=== PATIENT | male | born 1975 | race Hispanic/Latino ===

== ENCOUNTER 2016-10-27 02:34 | Emergency (ER) | payer OTHER ==
[~2016-10-27] VITALS: Ht 170.2 cm; Wt 95.3 kg
[~2016-10-27 02:34] MED LIST: CLONIDINE HCL0.1 MG PO; CYCLOBENZAPRINE10 M1 PO; FLOMAX0.4 M1 PO; NAPROSYN500 M1 PO; ULTRAM50 M1 PO; VICODIN 5-3001 EACH PO; ZOFRAN4 M2 PO
[2016-10-27 02:49] VITALS: BP 164/100
--- NOTE | 2016-10-27 03:05 | ED GI/GU/ABDOMINAL COMPLAINT ---
History of Present Illness General Chief Complaint: Nausea, Vomiting, Diarrhea Stated Complaint: +N/V, DIZZY Source: patient Exam Limitations: no limitations Vital Signs & Intake/Output Vital Signs & Intake/Output Vital Signs Date Time Temp Pulse Resp B/P Pulse O2 O2 Flow FiO2 Ox Delivery Rate 10/27 0249 97.2 85 18 164/100 92 Room Air Allergies Coded Allergies: No Known Allergies (07/17/16) Reconcile Medications Clonidine HCl 0.1 MG TABLET 1 TAB PO TID DETOXIFICATION Naproxen (Naprosyn) 500 MG TABLET 1 TAB PO BID pain Ondansetron (Zofran Odt) 4 MG TAB.RAPDIS 1-2 TAB SL TID PRN nausea Ondansetron HCl (Zofran) 4 MG TABLET 1 TAB PO Q6-8P PRN NAUSEA Tamsulosin HCl (Flomax) 0.4 MG CAP.ER.24H 1 CAP PO DAILY kidney stone Tramadol HCl (Ultram) 50 MG TABLET 1 TAB PO Q6P PRN pain Triage Note: per pt vomitting x 5 all day today ?diarrhea. kids were sick last week and now me. appears well hydrated. Triage Nurses Notes Reviewed? yes Onset: Gradual Duration: day(s):, waxing and waning Timing: single episode today Quality/Severity: cramping Location: generalized abdomen Radiation: no radiation Activities at Onset: none Prior Abdominal Problems: none Modifying Factors: Worsens With: vomiting. Associated Symptoms: abdominal pain, diarrhea, nausea/vomiting HPI: 41 yo gentleman presents with nausea, vomiting, diarrhea between 11pm -1am. "I just kept vomiting tonight... I was sick earlier in the day. My whole family is sick with the same thing... We were here yesterday in the emergency room. He notes feeling slight nausea. No chest pain, shortness of breath, fever, chills, dysuria. Past History Travel History Traveled to [place] past 21 day No Medical History Any Pertinent Medical History? 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 No Review of Systems Review of Systems Constitutional: Reports: no symptoms. EENTM: Reports: no symptoms. Respiratory: Reports: no symptoms. Cardiovascular: Reports: no symptoms. GI: Reports: no symptoms. Genitourinary: Reports: no symptoms. Musculoskeletal: Reports: no symptoms. Skin: Reports: no symptoms. Neurological/Psychological: Reports: no symptoms. Hematologic/Endocrine: Reports: no symptoms. Immunologic/Allergic: Reports: no symptoms. All Other Systems: Reviewed and Negative Physical Exam Physical Exam General Appearance: well developed/nourished, mild distress Head: atraumatic, normal appearance Eyes: Bilateral: normal appearance. Ears, Nose, Throat, Mouth: hearing grossly normal Neck: normal inspection, supple, full range of motion, normal alignment Respiratory: normal breath sounds, chest non-tender, no respiratory distress, quiet respiration, lungs clear Cardiovascular: regular rate/rhythm Gastrointestinal: normal bowel sounds, soft, non-tender, no organomegaly Back: normal inspection, normal range of motion Extremities: normal range of motion Neurologic/Psych: no motor/sensory deficits, awake, alert, oriented x 3 Skin: intact, normal color, warm/dry Core Measures ACS in differential dx? No Severe Sepsis Present: No Septic Shock Present: No Progress Differential Diagnosis: viral syndrome vs other. Plan of Care: Orders Procedure Date/time Status LIPASE 10/27 236 Complete HEPATIC FUNCTION PANEL 10/27 236 Complete CBC WITHOUT DIFFERENTIAL 10/27 236 Complete BASIC METABOLIC PANEL 10/27 236 Complete AMYLASE 10/27 236 Complete Current Medications Sig/Carmine Start time Last Medication Dose Stop Time Status Admin Ondansetron HCl 4 MG ONCE ONE 10/27 314 CAN (Zofran) 10/27 315 Sodium Chloride 1,000 ML BOLUS ONE 10/27 0315 CAN (Normal Saline 0.9%) 10/27 0414 Laboratory Tests 10/27/16 0305: Anion Gap 8, Estimated GFR > 60, BUN/Creatinine Ratio 22.2, Glucose 91, Calcium 9.2, Total Bilirubin 0.5, Direct Bilirubin 0.4, AST 21, ALT 31, Alkaline Phosphatase 63, Total Protein 7.3, Albumin 4.1, Amylase 48, Lipase 71, CBC w Diff NO MAN DIFF REQ, RBC 5.26, MCV 82.7, MCH 27.4, RDW 13.6, MPV 9.4, Gran % 58.4, Lymphocytes % 30.3, Monocytes % 8.5, Eosinophils % 2.3, Basophils % 0.5, Absolute Granulocytes 5.3, Absolute Lymphocytes 2.7, Absolute Monocytes 0.8 H, Absolute Eosinophils 0.2, Absolute Basophils 0, PUBS MCHC 33.1 Initial ED EKG: none Departure Departure Disposition: HOME OR SELF CARE Condition: Stable Clinical Impression Primary Impression: Nausea and vomiting Secondary Impressions: Abdominal pain, Gastroenteritis Referrals: PATIENT HAS NO PRIMARY CARE DR (PCP/Family) Referred to [facility] as new patient No Departure Forms: Customer Survey General Discharge Information Prescriptions: Current Visit Scripts Ondansetron (Zofran Odt) 1-2 TAB SL TID PRN nausea #10 TAB Ref 1 Comments at discharge, he is feeling better with supportive medications. Labs benign... pt safe for discharge with close follow up advised.
[2016-10-27] MEDS ORDERED: ZOFRAN ODT4 M1 SL (03:17)
[2016-10-27 03:23] LABS: ABSOLUTE BASOPHIL COUNT 0 /CUMM (0.0-0.2); ABSOLUTE EOSINOPHIL COUNT 0.2 /CUMM (0.0-0.7); ABSOLUTE GRANULOCYTE CT 5.3 /CUMM (1.4-6.5); ABSOLUTE LYMPH COUNT 2.7 /CUMM (1.2-3.4); ABSOLUTE MONOCYTE COUNT 0.8 /CUMM (0.10-0.60); BASOPHIL % 0.5 % (0.0-2.0); EOSINOPHIL % 2.3 % (0-5); GRANULOCYTE % 58.4 % (42.2-75.2); HEMATOCRIT 43.5 % (42-52); MEAN CORPUSCULAR HGB 27.4 PG (27.0-31.0); MEAN CORPUSCULAR HGB CONC 33.1 G/DL (33.0-37.0); MEAN CORPUSCULAR VOLUME 82.7 FL (80.0-94.0); MEAN PLATELET VOLUME 9.4 FL (7.4-10.4); PLATELET COUNT 239 /CUMM (130-400); RBC DISTRIBUTION WIDTH 13.6 % (11.5-14.5); RED BLOOD CELL CT 5.26 /CUMM (4.70-6.10); WHITE BLOOD CELL COUNT 9.1 /CUMM (4.8-10.8)
== END 2016-10-27 04:26 ==
LOC: ERH 02:34
PROVIDERS: Pediatrics
DX: K52.9 Noninfective gastroenteritis and colitis, unspecified (principal); R42 Dizziness and giddiness
CPT/HCPCS: J3101

== ENCOUNTER 2016-11-06 19:13 | Emergency (ER) | payer OTHER ==
[~2016-11-06] VITALS: Ht 170.2 cm; Wt 90.7 kg
[~2016-11-06 19:13] MED LIST changes: +ZOFRAN ODT4 M1 SL
[2016-11-06 19:22] VITALS: BP 125/77
--- NOTE | 2016-11-06 19:30 | ED GENERAL ADULT ---
History of Present Illness General Chief Complaint: ETOH/Drug Related Complaint Stated Complaint: HERION WITHDRAWAL Source: patient, TRIAGE NOTES Exam Limitations: PATIENT REFUSED TO SPEAK TO ME Vital Signs & Intake/Output Vital Signs & Intake/Output Vital Signs Date Time Temp Pulse Resp B/P Pulse O2 O2 Flow FiO2 Ox Delivery Rate 11/06 1921 97.3 102 16 125/77 95 Allergies Coded Allergies: No Known Allergies (07/17/16) Reconcile Medications Clonidine HCl 0.1 MG TABLET 1 TAB PO TID DETOXIFICATION Naproxen (Naprosyn) 500 MG TABLET 1 TAB PO BID pain Ondansetron (Zofran Odt) 4 MG TAB.RAPDIS 1-2 TAB SL TID PRN nausea Ondansetron HCl (Zofran) 4 MG TABLET 1 TAB PO Q6-8P PRN NAUSEA Tamsulosin HCl (Flomax) 0.4 MG CAP.ER.24H 1 CAP PO DAILY kidney stone Tramadol HCl (Ultram) 50 MG TABLET 1 TAB PO Q6P PRN pain Triage Note: PT STATES HE IS USING HEROIN AND NOW HE IS WITHDRAWING. PT REQUESTING DETOX AT THIS TIME. PT LAST DETOX WAS 2 MONTHS AGO. PT DENIES OTHER DRUG USE. PT DENIES SI/HI LAST USED LAST EVENING. Triage Nurses Notes Reviewed? yes HPI: Per the triage nurse note, the patient presented to the emergency department requesting treatment for heroin withdrawal. Patient denied any suicidal or homicidal ideations to the triage nurse. Is brought back to ER room 13 and was asked to change into a gown per ER protocol. Security was also there in order to wand him, again according to ER protocol. Patient stated that he is not a criminal and we cannot treat him like one and he walked out of the emergency department prior to being seen or examined by myself. Past History Travel History Traveled to [place] past 21 day No Medical History Any Pertinent Medical History? 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 No Review of Systems Review of Systems Constitutional: Reports: see HPI. Physical Exam Physical Exam General Appearance: alert, awake Comments: I only visualizes patient as he was walking out. Patient refused to speak to me. Per the triage nurse he was alert and oriented and denied suicidal or homicidal ideations. Core Measures ACS in differential dx? No CVA/TIA Diagnosis: No Severe Sepsis Present: No Septic Shock Present: No Progress Differential Diagnoses I considered the following diagnoses in my evaluation of the patient: [Opiate withdrawal] Plan of Care: Patient walked out Initial ED EKG: none Departure Departure Disposition: ER WALKOUT Condition: Stable Clinical Impression Primary Impression: Opiate abuse, continuous Referrals: PATIENT HAS NO PRIMARY CARE DR (PCP/Family) Departure Forms: Customer Survey General Discharge Information Critical Care Note Critical Care Note Critical Care Time: non-applicable
== END 2016-11-06 20:30 | disposition admitted as inpatient to this hospital (09) ==
LOC: ERH 19:13
DX: F11.23 Opioid dependence with withdrawal (principal)

== ENCOUNTER 2017-01-26 23:03 | Emergency (ER) | payer OTHER ==
[~2017-01-26] VITALS: Ht 170.2 cm; Wt 90.7 kg
--- NOTE | 2017-01-26 23:23 | ED UPPER/LOWER EXTREMITY COMPL ---
History of Present Illness General Chief Complaint: Foot or Ankle Injury Stated Complaint: " ?RT FOOT INJURY" Source: patient Exam Limitations: no limitations Vital Signs & Intake/Output Vital Signs & Intake/Output Vital Signs Date Time Temp Pulse Resp B/P Pulse O2 O2 Flow FiO2 Ox Delivery Rate 01/26 2316 98.7 98 18 149/91 96 Room Air ED Intake and Output 04 0000 04 1200 Intake Total Output Total Balance Patient 200 lb Weight Allergies Coded Allergies: No Known Allergies (07/17/16) Reconcile Medications Clonidine HCl 0.1 MG TABLET 1 TAB PO TID DETOXIFICATION Naproxen (Naprosyn) 500 MG TABLET 1 TAB PO BID pain Ondansetron (Zofran Odt) 4 MG TAB.RAPDIS 1-2 TAB SL TID PRN nausea Ondansetron HCl (Zofran) 4 MG TABLET 1 TAB PO Q6-8P PRN NAUSEA Tamsulosin HCl (Flomax) 0.4 MG CAP.ER.24H 1 CAP PO DAILY kidney stone Tramadol HCl (Ultram) 50 MG TABLET 1 TAB PO Q6P PRN pain Triage Nurses Notes Reviewed? yes Onset: Abrupt Duration: hour(s):, waxing and waning Timing: recent history Severity: mild Pain/Injury Location: Right: Ankle. Method of Injury: fall Modifying Factors: Improves With: rest. Worsens With: movement. Associated Symptoms: right ankle sprain HPI: 41 yo gentleman presents with right ankle pain. "I think I sprained my achilles tendon... I tripped when I was coming down some stairs." He notes no focal bony pain, no deformity. He is able to ambulate but with discomfort. Past History Travel History Traveled to [place] past 21 day No Medical History Any Pertinent Medical History? 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 No Review of Systems Review of Systems Constitutional: Reports: no symptoms. EENTM: Reports: no symptoms. Respiratory: Reports: no symptoms. Cardiovascular: Reports: no symptoms. Gastrointestinal/Abdominal: Reports: no symptoms. Genitourinary: Reports: no symptoms. Musculoskeletal: Reports: no symptoms. Skin: Reports: no symptoms. Neurological/Psychological: Reports: no symptoms. Hematologic/Endocrine: Reports: no symptoms. Immunological: Reports: no symptoms. All Other Systems: Reviewed and Negative Physical Exam Physical Exam General Appearance: well developed/nourished, mild distress Head: atraumatic Eyes: Bilateral: normal appearance. Ears, Nose, Throat: normal pharynx, normal ENT inspection, hearing grossly normal Neck: normal inspection, supple Cardiovascular/Respiratory: regular rate/rhythm Back: normal inspection Foot Right: pain with extension of his right foot, mild tenderness to achilles tendon. strength of ankle is normal. no deformity. 2+ distal pulses and light touch intact. Skin: intact, normal color, warm/dry Lymphatic: no anterior cervical amrik Progress Differential Diagnosis: contusion, fracture, sprain Plan of Care: Orders Procedure Date/time Status Durable Medical Equipment 01/28 32 Active Diagnostic Imaging: Viewed by Me: Radiology Read. Discussed w/RAD: Radiology Read. Radiology Impression: right ankle... no fx. Comments: PATIENT: MARTHA RYAN PRESENT AGE: 41 PATIENT ACCOUNT NO: [id number] : 75 LOCATION: [facility] ORDERING PHYSICIAN: LEONEL LOZA MD SERVICE DATE: 01/26/17 EXAM TYPE: RAD - XRY-TWO VIEW RIGHT ANKLE EXAMINATION: XR ANKLE, RIGHT CLINICAL INFORMATION: Right ankle injury. Pain. COMPARISON: None TECHNIQUE: AP, lateral, and mortise views of the right ankle. FINDINGS: The bones and soft tissues are normal. No fracture. Alignment is anatomic. Joint spaces are maintained. No joint effusion. IMPRESSION: Normal right ankle. DICTATED BY: ELOISA CONWAY MD DATE/TIME DICTATED:01/27/177 MANUFACTURING OPERATOR:JULIOCESAR DATE/TIME TRANSCRIBED:01/27/177 CONFIDENTIAL, DO NOT COPY WITHOUT APPROPRIATE AUTHORIZATION. <Electronically signed in Other Vendor System> SIGNED BY: ELOISA CONWAY MD 01/27/17 0013 Departure Departure Disposition: HOME OR SELF CARE Condition: Stable Clinical Impression Primary Impression: Achilles tendon sprain Referrals: MALCOLM ABBOTT,MARIO Bartlett (PCP/Family) Departure Forms: Customer Survey General Discharge Information Comments NEHA BANDAGE placed on right ankle by RN... crutches given... pt referred to ortho if not better. encouraged close follow up.
--- NOTE | 2017-01-27 00:13 | RADIOLOGY REPORT ---
EXAMINATION: XR ANKLE, RIGHT CLINICAL INFORMATION: Right ankle injury. Pain. COMPARISON: None TECHNIQUE: AP, lateral, and mortise views of the right ankle. FINDINGS: The bones and soft tissues are normal. No fracture. Alignment is anatomic. Joint spaces are maintained. No joint effusion. IMPRESSION: Normal right ankle.
[2017-01-27 00:54] VITALS: BP 149/88
== END 2017-01-27 00:55 ==
LOC: ERH 23:03
DX: S93.491A Sprain of other ligament of right ankle, initial encounter (principal); W18.09XA Striking against other object with subsequent fall, initial encounter; Y92.9 Unspecified place or not applicable; Y93.9 Activity, unspecified
CPT/HCPCS: 73600-RT